=== PATIENT | male | born 1970 | race Caucasian/White ===

== ENCOUNTER 2024-09-13 14:33 | Emergency (ER) | payer SELFPAY ==
[2024-09-13 14:36] VITALS: BP 125/73; PULSE 80; RESP 16; TEMP 37.1; O2SAT 100; BMI 22.5
--- NOTE | 2024-09-13 15:10 | ED.EXTPRO ---
HPI - Extremity Problem General Chief complaint: Extremity Problem,Nontraumatic Stated complaint: Infection in right knee sent from [facility] Time Seen by Provider: 09/13/24 14:58 Source: patient Mode of arrival: Ambulatory History of Present Illness HPI Narrative: Patient here with redness to the right knee. With mild edema. Patient has full active range of motion of the knee and weight-bearing without any difficulty. Patient has history of left wrist septic arthritis a few years ago. Patient had MRI and antibiotics for it. However during COVID he was not able to be seen for this by Orthopedics. No surgery or aspiration or cultures were done. He was followed by infectious disease and informed him likely it was septic arthritis as a there is no cartilage between parts of his wrist bones and has limited flexion-extension since then. Patient noticed the redness to his knee in the past 24 hours. Small ulceration at the inferior patella skin surface noted he does not know how that happened. Patient in shorts. Has full active range of motion of the knee without any pain. Able to fully flex to 90? and fully extend and bear weight and walk without antalgic gait Related Data Previous Rx's Medication Instructions Recorded cefdinir 300 mg capsule 300 mg PO BID #14 caps 09/13/24 cefdinir 300 mg capsule 300 mg PO BID #14 caps 09/13/24 doxycycline monohydrate 100 mg 100 mg PO BID #14 caps 09/13/24 capsule doxycycline monohydrate 100 mg 100 mg PO BID #20 caps 09/13/24 capsule Allergies Allergy/AdvReac Type Severity Reaction Status Date / Time No Known Drug Allergies Allergy Verified 09/13/24 14:35 Review of Systems Review of Systems Narrative: GENERAL: Negative chills, fatigue, malaise, fever, sweats. HEENT: Negative sinus pain, ear pain, sore throat RESPIRATORY: Negative dyspnea, cough CARDIOVASCULAR: Negative chest pain, palpitations GASTROINTESTINAL: Negative vomiting, nausea, abdominal pain : Negative dysuria, frequency, hematuria MUSCULOSKELETAL: Negative muscle or bony pain SKIN: Negative rash, skin lesions, positive skin color change NEUROLOGIC: Negative weakness, numbness ROS Unobtainable: All systems reviewed & are unremarkable except as noted in HPI and below Patient History Social History Smoking Status: Never smoker Smoking Status: Never smoker Exam Narrative Exam Narrative: GENERAL: in no distress, not toxic not dyspneic HEAD: Normocephalic. EYES: Pupils equal round EXTREMITIES: No gross deformities. Examination right lower extremity. Grossly symmetric to the left lower extremity. Patient wearing shorts. Inferior patella skin there is small ulceration of the skin that is dry no oozing nontender, 5 mm in diameter. It is very superficial and shallow. No fat or bony or cartilaginous or muscle material seen. No tendinous material seen. Patient has full flexion-extension of the knee without difficulty. Able to stand and bear weight walk without antalgic gait. There is patellar erythema without induration. No crepitus no pain out of portion exam. No red streaking. NEURO: AOx4. Clear speech SKIN: Warm and dry PSYCH: Not anxious, is cooperative Initial Vital Signs Initial Vital Signs: Vital Signs Temperature 98.8 F 09/13/24 14:36 Pulse Rate 80 09/13/24 14:36 Respiratory Rate 16 09/13/24 14:36 Blood Pressure 125/73 09/13/24 14:36 Pulse Oximetry 100 09/13/24 14:36 Oxygen Delivery Method Room Air 09/13/24 14:36 Course Orders Ordered: Discontinued Medications Cefdinir (Cefdinir 300 Mg Capsule) 300 mg PO NOW ONE Stop: 09/13/24 16:45 Last Admin: 09/13/24 16:51 Dose: 300 mg Documented By: ANDER Diphtheria/Tetanus/Acell Pertussis (Tet,Diph,Pertuss(Acell),Vac/Pf 0.5 Ml Syringe) 0.5 ml IM .ONCE ONE Stop: 09/13/24 15:14 Last Admin: 09/13/24 15:35 Dose: 0.5 ml Documented By: ANDER Doxycycline Hyclate 100 mg/ (Sodium Chloride) 100 mls @ 100 mls/hr IV NOW ONE Stop: 09/13/24 15:11 Last Infusion: 09/13/24 16:47 Dose: Infused Documented By: [facility] Admin: 09/13/24 15:34 Dose: 100 mls/hr Documented By: ELVIRA Vital Signs Vital signs: Vital Signs - 8 hr 09/13/24 14:36 Temperature 98.8 F Pulse Rate 80 Respiratory Rate 16 Blood Pressure 125/73 Pulse Oximetry 100 Oxygen Delivery Method Room Air MDM - Extremity (Nontraumatic) Lab Data 09/13/24 15:15 09/13/24 15:15 Labs: Lab Results 09/13/24 Range/Units 15:15 WBC 11.3 H (4.5-11.0) X10^3/uL RBC 4.60 (4.5-5.9) X10^6/uL Hgb 13.9 (13.5-17.5) g/dL Hct 40.1 L (41-53) % MCV 87.3 (80-100) fL MCH 30.1 (26-34) PG MCHC 34.5 (30-36) % RDW 13.5 (11.6-14.8) % Plt Count 242 (150-400) X10^3/uL Neut % (Auto) 75.0 (50-75) % Lymph % (Auto) 12.9 L (25-40) % [place] % (Auto) 10.1 (3-14) % Eos % (Auto) 1.5 L (2-4) % Baso % (Auto) 0.5 (0-2) % Neut # (Auto) 8500 H (6967-6889) /uL Lymph # (Auto) 1500 (7186-4411) /uL [place] # (Auto) 1100 H (0-900) /uL Eos # (Auto) 200 (0-450) /uL Baso # (Auto) 100 (0-100) /uL Sodium 141 (137-145) mmol/L Potassium 3.8 (3.4-5.1) mmol/L Chloride 107 (98-107) mmol/L Carbon Dioxide 28 (22-32) mmol/L BUN 19 (9-20) mg/dL Creatinine 1.00 (0.66-1.25) mg/dL Estimated GFR > 60 (>60) mL/min BUN/Creatinine Ratio 19.0 (6-22) Glucose 108 H (70-99) mg/dL Calcium 9.7 (8.4-10.2) mg/dL Total Bilirubin 0.6 (0.2-1.3) mg/dL AST 32 (17-59) IU/L ALT 24 (<50) IU/L Alkaline Phosphatase 54 (38-126) U/L Total Protein 6.8 (6.3-8.2) g/dL Albumin 4.4 (3.5-5.0) g/dL Globulin 2.4 (1.7-4.1) g/dL Albumin/Globulin Ratio 1.8 (1.0-2.8) Imaging Data Extremity x-ray #1: Radiologist's Impression: [address] [address] XRay Report Signed Patient: Roque Rose MR#: [id number] : 1970 Acct:[id number] Age/Sex: 54 / M Date of Service: 09/13/24 Loc: ED Accession Number: [id number] Procedure: XR knee RT 3V Ordering Provider: Slade Aquino MD PROCEDURE: XR KNEE RT 3V INDICATIONS: Knee pain and swelling TECHNIQUE: 3 views of the knee were acquired. COMPARISON: None. FINDINGS: Bones: No fractures or dislocations. No suspicious bony lesions. Soft tissues: No joint effusion. No suspicious soft tissue calcifications. IMPRESSION: No acute bony abnormality or significant effusion. Dictated by: Brad Cary M.D. on 09/13/2024 at 15:48 Approved by: Brad Cary M.D. on 09/13/2024 at 15:49 [facility] Narrative Medical decision making narrative: Patient here with redness to the right knee. With mild edema. Patient has full active range of motion of the knee and weight-bearing without any difficulty. Patient has history of left wrist septic arthritis a few years ago. Patient had MRI and antibiotics for it. However during COVID he was not able to be seen for this by Orthopedics. No surgery or aspiration or cultures were done. He was followed by infectious disease and informed him likely it was septic arthritis as a there is no cartilage between parts of his wrist bones and has limited flexion-extension since then. Patient noticed the redness to his knee in the past 24 hours. Small ulceration at the inferior patella skin surface noted he does not know how that happened. Patient in shorts. Has full active range of motion of the knee without any pain. Able to fully flex to 90? and fully extend and bear weight and walk without antalgic gait After history and exam, CBC CMP blood culture x-ray right knee doxycycline tetanus shot, knee ESR or CRP indicated this time. 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 [facility] Medical records reviewed: No recent visit for this complaint Differential considered: Includes but not limited to septic arthritis septic joint cellulitis Lab Test results independently reviewed as above. Pertinent findings: WBC 11.3 Imaging studies independently reviewed: X-ray right knee no acute finding Consultations: None indicated at this time. Exam is reassuring. Re-evaluations: 4:45 p.m.. Patient doing well. Reviewed results with patient. Likely not septic joint given that he is able to ambulate without any difficulty. No pain with walking. Likely cellulitis. Antibiotics have been started. Return precautions reviewed. He is from [place]. He has appointment with this physician in [place] in 2 days regarding today's visit. He desires discharge home. Return precautions reviewed with patient. Discussion: Appropriate for discharge home exam is reassuring. Return precautions reviewed. White cell count noted but very slightly elevated. Clinically not septic joint given that he is able to ambulate and walk without difficulty. Not toxic at discharge. He desires discharge home Diagnosis: Right knee cellulitis Discharge Plan Departure Patient Disposition: Home Clinical Impression: Cellulitis Qualifiers: Site of cellulitis: extremity Site of cellulitis of extremity: lower extremity Laterality: right Qualified Code(s): L03.115 - Cellulitis of right lower limb Instructions: DI for Cellulitis -- Adult Activity Restrictions/Additional Instructions: Your exam and laboratory studies and imaging studies are reassuring. You are being treated for cellulitis. Surgical pen markings have been made on her skin. You need to return to the emergency department or see your family doctor if worsening. 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 First dose was given by IV here today. Prescriptions: New doxycycline monohydrate 100 mg capsule 100 mg PO BID Qty: 20 0RF cefdinir 300 mg capsule 300 mg PO BID Qty: 14 0RF doxycycline monohydrate 100 mg capsule 100 mg PO BID Qty: 14 0RF cefdinir 300 mg capsule 300 mg PO BID Qty: 14 0RF Stand Alone Forms: Patient Portal/API/Survey
[2024-09-13] MEDS: DOXYCYCLINE 100 MG in SODIUM CHLORIDE 0.9% 100 ML IV (15:34)
[2024-09-13] MEDS: TET,DIPH,PERTUSS(ACELL),VAC/PF 0.5 ML SYRINGE IM (15:35)
[2024-09-13 15:37] LABS: Add Manual Diff / Slide Review NO; Basophils Absolute Auto 100 /uL (0-100); Basophils Percent Auto 0.5 % (0-2); Eosinophils Absolute Auto 200 /uL (0-450); Eosinophils Percent Auto 1.5 % (2-4); Hematocrit 40.1 % (41-53); Hemoglobin 13.9 g/dL (13.5-17.5); Lymphocytes Absolute Auto 1500 /uL (1100-4500); Lymphocytes Percent Auto 12.9 % (25-40); Mean Corpuscular HGB Conc 34.5 % (30-36); Mean Corpuscular Hemoglobin 30.1 PG (26-34); Mean Corpuscular Volume 87.3 fL (80-100); Monocytes Absolute Auto 1100 /uL (0-900); Monocytes Percent Auto 10.1 % (3-14); Neutrophils Absolute Auto 8500 /uL (1500-7000); Platelet Count 242 X10^3/uL (150-400); Red Cell Distribution Width 13.5 % (11.6-14.8); White Blood Cell Count 11.3 X10^3/uL (4.5-11.0)
[2024-09-13 15:47] LABS: Alanine Aminotransferase 24 IU/L (<50); Albumin 4.4 g/dL (3.5-5.0); Albumin Globulin Ratio 1.8 (1.0-2.8); Alkaline Phosphatase 54 U/L (38-126); Aspartate Aminotransferase 32 IU/L (17-59); Bilirubin Total 0.6 mg/dL (0.2-1.3); Blood Urea Nitrogen 19 mg/dL (9-20); Calcium 9.7 mg/dL (8.4-10.2); Carbon Dioxide 28 mmol/L (22-32); Chloride 107 mmol/L (98-107); Estimated Glomerular Filt Rate > 60 mL/min (>60); Globulin 2.4 g/dL (1.7-4.1); Glucose 108 mg/dL (70-99); HEMOLYSIS < 15 (0-50); Potassium 3.8 mmol/L (3.4-5.1); Sodium 141 mmol/L (137-145); Total Protein 6.8 g/dL (6.3-8.2)
[2024-09-13 16:39] VITALS: BP 118/75; PULSE 72; RESP 12; TEMP 36.8; O2SAT 100
[2024-09-13] MEDS: CEFDINIR 300 MG CAPSULE PO (16:51)
== END 2024-09-13 16:56 | disposition home or self-care (01) ==
PROVIDERS: Emergency Provider Emergency Medicine
DX: L03.115 Cellulitis of right lower limb (principal); Z87.39 Personal history of other diseases of the musculoskeletal system and connective tissue; Z23 Encounter for immunization
CPT/HCPCS: 36415; 73562; 80053; 85025; 87040; 90471; 96365; 99284; 90715